=== PATIENT | male | born 1985 ===

== ENCOUNTER 2022-05-30 13:10 | Emergency (ER) | payer OTHER ==
[~2022-05-30] VITALS: Ht 177.8 cm; Wt 80.0 kg
--- NOTE | 2022-05-30 15:46 | NUR ---
PT WAS SEEN, TREATED AND DC'D BY PROVIDER PRIOR TO RN ASESSMENT.
== END 2022-05-30 15:46 | disposition home or self-care (01) ==
LOC: ER 13:10
DX: S61.431A Puncture wound without foreign body of right hand, initial encounter (principal); Z77.21 Contact with and (suspected) exposure to potentially hazardous body fluids; W46.0XXA Contact with hypodermic needle, initial encounter; Y93.89 Activity, other specified; Y92.89 Other specified places as the place of occurrence of the external cause; Y99.8 Other external cause status
CPT/HCPCS: 99281